=== PATIENT | male | born 1945 | race Caucasian/White ===

== ENCOUNTER → 2017-09-10 | Outpatient (CLI) | payer OTHER ==
[~2017-09-10] MED LIST: OPTIRAY 320 IV PRN
--- NOTE | 2017-09-10 17:36 | DIAGNOSTIC IMAGING REPORT ---
ABD/PELVIS COMBO CT DOSE: 1529.24 mGycm HISTORY: Hematuria GROSS HEMATURIA, R31.0 TECHNIQUE: Multiaxial CT images of the abdomen and pelvis were performed pre and post intravenous contrast enhancement. A dose lowering technique was utilized adhering to the principles of ALARA. COMPARISON STUDY: None. FINDINGS: Lung bases are clear. Prior cholecystectomy. Liver spleen and pancreas are unremarkable. The adrenal glands are normal. Kidneys enhance uniformly. Three-dimensional evaluation of the collecting systems and ureters show no significant filling defect. Bladder is midline. Prostate is moderately enlarged. There is no significant abdominal or pelvic adenopathy. There is atherosclerotic change of the abdominal aorta with no evidence for aneurysm or dissection. Bowel pattern is nonobstructive. IMPRESSION: 1. No significant abnormality identified within the abdomen or pelvis. 2. No abnormality of the urinary tracts. 3. Prior cholecystectomy. 4. Moderate prostatic enlargement The above report was generated using voice recognition software. It may contain grammatical, syntax or spelling errors. Electronically signed by: Robert Vizcaino M.D. 09/10/2017 5:34 PM Dictated Date/Time: 09/10/2017 5:31 PM
== END | disposition home or self-care (01) ==
LOC: C.CTS 15:59
PROVIDERS: ATTEND Nurse Practitioner Adult Health
DX: R31.0 Gross hematuria (principal)

== ENCOUNTER → 2017-10-01 | Outpatient (CLI) | payer OTHER | END | disposition home or self-care (01) | LOC: C.LABSPEC 16:56 | PROVIDERS: ATTEND Nurse Practitioner Adult Health | DX: R31.0 Gross hematuria (principal) ==